=== PATIENT | male | born 1990 | race Caucasian/White ===

== ENCOUNTER 2025-05-07 15:19 | Emergency (ER) | payer MEDICAID ==
[~2025-05-07] VITALS: Ht 180.3 cm; Wt 88.6 kg
[2025-05-07 15:28] VITALS: BP 134/88; PULSE 75; RESP 18; O2SAT 98
--- NOTE | 2025-05-07 15:39 | Physician Documentation ---
History of Present Illness ~ Chief Complaint: Anxiety Stated Complaint: NAUSEA/VOMITING/HOT FLASHES X 1DAY Time Seen by MD: 17:35 HPI This is a 34-year-old male who presents with feelings of anxiety and shortness of breath, patient reports he is decreasing his dose of methadone, patient reports he had nausea, vomiting, and hot flashes yesterday along with pain in his right shoulder and bicep described as cramping. Patient reports these symptoms have decreased and only feelings of anxiety and shortness of breath remain. Patient describes the shortness of breath as in his his mouth chest feels tight when he takes a deep breath otherwise no chest discomfort or shortness of breath at rest with exertion. Medication Reconciliation Allergies: Coded Allergies: No Known Allergies (Unverified , 05/07/25) Scheduled PRN Hydroxyzine Hcl* (Atarax*), 1 TAB PO Q12H PRN for anxiety Past Medical History Past Medical History: No Pertinent History Drug Use: other (Opioids) Review of Systems ROS Anxiety as stated above in the HPI, otherwise all systems are reviewed and negative. Physical Exam Vital Signs: Temperature: 97.5, Source: Temporal, Heart Rate: 75, Respiratory Rate: 18, BP: 134/88, Pulse Oximetry: 98, Weight: 88.640 Oxygen Flow Rate: 0 Physical Exam VITALS: Reviewed and as above. GENERAL: Alert, nontoxic appearing, no apparent distress. RESPIRATORY: No increased work of breathing, no respiratory distress, speaking in long full clear sentences, clear lung sounds in all tinoco CHEST: No pain with palpation CV: Regular rate and rhythm no murmur BACK: No CVA tenderness GI: Soft, nondistended, no tenderness MUSCULOSKELETAL: Progress Results/Orders Results/Orders Vital Signs 05/07/25 05/07/25 15:28 19:08 Temp 97.5 97.5 Pulse 75 Resp 18 B/P (MAP) 134/88 Pulse Ox 98 O2 Flow Rate 0 Laboratory Tests Test 05/07/25 18:30 White Blood Count 10.0 Red Blood Count 4.79 Hemoglobin 14.9 Hematocrit 42.8 Mean Corpuscular Volume 89.4 Mean Corpuscular Hemoglobin 31.2 H Mean Corpuscular Hemoglobin Concent 34.9 Red Cell Distribution Width 13.4 Platelet Count 318 Mean Platelet Volume 7.5 Neutrophils (%) (Auto) 63.9 Lymphocytes (%) (Auto) 27.6 Monocytes (%) (Auto) 7.4 Eosinophils (%) (Auto) 0.4 Basophils (%) (Auto) 0.7 Neutrophils # (Auto) 6.4 Lymphocytes # (Auto) 2.8 Monocytes # (Auto) 0.7 Eosinophils # (Auto) 0.0 Basophils # (Auto) 0.1 CBC Comment Sodium Level 139 Potassium Level 4.1 Chloride Level 100 Carbon Dioxide Level 28.5 Anion Gap 11 Blood Urea Nitrogen 16 Creatinine 1.03 Estimated GFR/1.73 m2 84 BUN/Creatinine Ratio 15.5 Glucose Level 97 Calcium Level 9.4 Albumin 4.9 Chemistry Comments EKG/XRAY/CT/US/VASC/MRI EKG : Additional Comment EKG at 1535 interpreted by myself as sinus rhythm at a rate of 63, normal axis, no ST segment elevation or depression Medical Decision Making Findings MSE performed in triage and patient returned to ED lobby by nursing staff This is a 34-year-old male with a history of opiate abuse who is currently tapering off of methadone, patient reports after reduction in dose recently he has been feeling generalized malaise, anxiety, and a feeling of chest tightness with deep breathing, additionally reporting nausea, vomiting, and muscle cramping yesterday however this has resolved. Patient is otherwise well- appearing and had a benign physical exam with clear lung sounds in all tin[place], vital signs significant for no tachycardia, no hypoxia, no tachypnea, and normotensive. Of note patient reports chest tightness was only with deep breathing and is not exacerbated by exertion. Patient reports symptoms began after decreasing dose of methadone, given this fact I believe symptoms are related to his 10 decrease in methadone dose causing anxiety and mild withdrawal symptoms. Due to patient concern for dehydration electrolyte abnormalities with shared decision-making basic labs were ordered to evaluate for electrolyte abnormality given patient has been vomiting significantly yesterday. Patient provided prescription for anxiety PRN. Patient is otherwise hemodynamically stable and appropriate for outpatient follow up. Patient provided home care instructions and return to care precautions which he verbalized understanding of. Differential Dx:Considerations: Include: Anxiety, Panic disorder (ME, PE, pneumonia, URI), Substance abuse, Other (Opioid withdrawal, pneumonia, URI, gastritis, hyponatremia, hypokalemia) Departure Disposition: 01 HOME / SELF CARE / HOMELESS Impression: Primary Impression: Anxiety Condition: Improved Discharge Instructions: Panic Attack Additional Instructions: Your lab work and EKG was reassuring, you may use the prescribed medications if you continue to have feelings of anxiety, otherwise please follow up with your primary care provider in the next few days. Please return to the emergency department for any new or worsening concerning symptoms. Referrals: NO PRIMARY CARE PROVIDER (PCP) Prescriptions Hydroxyzine Hcl* (Atarax*) 25 Mg Tablet 1 TAB PO Q12H PRN for anxiety for 15 Days, #30 TAB Prov: REGAN BECERRIL 05/07/25 Education Educated: Patient Educated regarding: diagnosis, treatment, prognosis, need for follow up Signature Scribe Signature: No scribe Attestation: The note accurately reflects work and decisions made by me.DANNIE Lima 05/07/25 21:59 REGAN BECERRIL May 07, 2025 15:39 RADHA GUSMAN MD May 09, 2025 07:37
--- NOTE | 2025-05-07 15:52 | ELECTROCARDIOGRAPH REPORT ---
[facility] [place] Test Date: 2025-05-07 Test Time: 15:35:20 Pat Name: EAN HASSAN Department: EMERGENCY ROOM Patient ID: [id number] Room: Gender: M Outreach Specialist: : [id number] Requested By: REGAN BECERRIL Order Number: [id number] Reading MD: Dr. Ramos Moore Measurements Intervals Barron Rate: 63 P: 64 HI: 134 QRS: 59 QRSD: 100 T: 48 QT: 404 QTc: 414 Interpretive Statements Sinus rhythm Probable inferior infarct, old Probable anterolateral infarct, old Electronically Signed On 05-09-2025 18:24:[address] Ramos Moore Please click the below link to view image of tracing.
[2025-05-07 18:39] LABS: BASOPHILS # (AUTO) 0.1 X10'3 (0-0.2); BASOPHILS % (AUTO) 0.7 % (0-1); EOSINOPHILS % (AUTO) 0.4 % (0-6); HEMATOCRIT 42.8 % (42.0-52.0); HEMOGLOBIN 14.9 g/dl (14.0-17.9); LYMPHOCYTES # (AUTO) 2.8 X10'3 (1.1-4.8); LYMPHOCYTES % (AUTO) 27.6 % (21-51); MEAN CORPUSCULAR HEMOGLOBIN 31.2 PG (27.0-31.0); MEAN CORPUSCULAR HGB CONC 34.9 g/dL (33.0-36.5); MEAN CORPUSCULAR VOLUME 89.4 FL (78-98); MEAN PLATELET VOLUME 7.5 FL (7.4-10.4); MONOCYTES # (AUTO) 0.7 X10'3 (0-0.9); MONOCYTES % (AUTO) 7.4 % (2-12); NEUTROPHILS # (AUTO) 6.4 X10'3 (1.8-7.7); NEUTROPHILS % (AUTO) 63.9 % (42-75); PLATELET COUNT 318 X10'3 (140-440); RED BLOOD COUNT 4.79 X10'6 (4.70-6.10); RED CELL DISTRIBUTION WIDTH 13.4 % (11.5-14.5)
[2025-05-07 18:52] LABS: ALBUMIN 4.9 G/DL (3.4-5.0); ANION GAP 11 (8-16); BLOOD UREA NITROGEN 16 MG/DL (7-18); BUN/CREATININE RATIO 15.5 (10.0-20.0); CALCIUM 9.4 MG/DL (8.5-10.1); CHLORIDE 100 MMOL/L (99-107); CREATININE 1.03 MG/DL (0.60-1.10); GLUCOSE 97 MG/DL (70-104); POTASSIUM 4.1 MMOL/L (3.5-5.1); SODIUM 139 MMOL/L (135-145); TOTAL CARBON DIOXIDE 28.5 MMOL/L (24-32); eCRCL 110 ML/MIN; eGFR 84 ML/MIN
[2025-05-07] MEDS ORDERED: HYDR-3686 PO (19:06)
[2025-05-07 19:08] VITALS: TEMP 97.5
== END 2025-05-07 19:25 | disposition home or self-care (01) ==
LOC: ER 15:20
DX: F41.9 Anxiety disorder, unspecified (principal); M25.511 Pain in right shoulder; R11.2 Nausea with vomiting, unspecified; Z79.899 Other long term (current) drug therapy
CPT/HCPCS: 36415; 80048; 85025; 93005; 99284